=== PATIENT | male | born 1950 | race Caucasian/White ===

== ENCOUNTER 2016-11-12 13:23 | Inpatient (IN) | payer MEDICARE, BC ==
[~2016-11-12] VITALS: Ht 190.5 cm; Wt 79.8 kg
[2016-11-12 13:30] VITALS: BP 121/67
--- NOTE | 2016-11-12 13:50 | NUR ---
GPS/RN PATIENT ADMITTED ON A 5150 UNDER THE CARE OF DR EARLY AND DR ALVA. PER HOLD PATIENT HAS HISTORY OF SEVERE DEPRESSION AND PSYCHOSIS. PATIENT WAS FOUND IN CAR, HAVING URINATED ON HIMSELF AND STATED HE WAS HEARING VOICES AND BELIEVES PEOPLE ARE COMING TO KILL HIM. UPON FACE TOP FACE ASSESSMENT PATIENT IS PARANOID, DELUSIONAL AND GUARDED. ALL ADMISSION PAPERWORK SIGNED, BELONGINGS CHECKED IN, PATIENT DENIES SI/HI AT THIS TIME, SKIN ASSESSMENT DONE, PICTURE TAKEN OF SACRAL REDNESS, WOUND CONSULT TRIGGERED. AT THIS TIME PATIENT IS CALM, COOPERATIVE, IN DINING ROOM, WILL CONTINUE TO MONITOR Q 15 MIN FOR SAFETY AND BEHAVIOR.
[2016-11-12] MEDS ORDERED: MAGNESIUM HYDROXIDE 30 ML UDC PO PRN (14:00)
[2016-11-12] MEDS ORDERED: ACETAMINOPHEN 325 MG TABLET PO PRN (14:00)
[2016-11-12] MEDS ORDERED: MAG HYDROX/AL HYDROX/SIMETH 30 ML UDC PO PRN (14:00)
[2016-11-12] MEDS ORDERED: MIRT45TA PO (14:11)
[2016-11-12 16:00] VITALS: BP 102/66
[2016-11-12 19:51] VITALS: BP 110/75
[2016-11-12] MEDS ORDERED: QUETIAPINE FUMARATE 25 MG TABLET PO SCH (22:00)
[2016-11-12] MEDS: MIRTAZAPINE 15 MG TABLET PO SCH (22:05)
[2016-11-12] MEDS: TEMAZEPAM 7.5 MG CAPSULE PO PRN (22:22)
[2016-11-13 08:00] VITALS: BP 144/94
[2016-11-13 08:02] LABS: BASOPHILS % (AUTO) 0.5 % (0.0-2.0); EOSINOPHILS # (AUTO) 0.1 /CMM (0.0-0.7); EOSINOPHILS % (AUTO) 1.2 % (0.0-6.0); HEMATOCRIT 46 % (39-51); HEMOGLOBIN 15.7 g/dL (13.5-17.5); LYMPHOCYTES # (AUTO) 1.1 /CMM (0.8-4.8); LYMPHOCYTES % (AUTO) 17.1 % (20.0-44.0); MEAN CORPUSCULAR HEMOGLOBIN 31 PG (26.0-33.0); MEAN CORPUSCULAR HGB CONC 35 g/dl (31.0-36.0); MEAN CORPUSCULAR VOLUME 89 fL (80-96); MONOCYTES # (AUTO) 0.5 /CMM (0.1-1.30); MONOCYTES % (AUTO) 7.5 % (2.0-12.0); NEUTROPHILS # (AUTO) 4.8 /CMM (1.8-8.9); NEUTROPHILS % (AUTO) 73.7 % (43.0-81.0); PLATELET COUNT (AUTO) 195 /CMM (150-450); RDW COEFFICIENT OF VARIATION 13.6 (11.5-15.0); WHITE BLOOD COUNT (AUTO) 6.5 K/uL (4.3-11.0)
[2016-11-13 08:18] LABS: ALBUMIN 3.9 g/dL (3.4-5.0); BILIRUBIN,TOTAL 1.1 mg/dL (0.2-1.0); CALCIUM, SERUM 9.2 mg/dL (8.5-10.1); CREATININE 0.9 mg/dL (0.6-1.3); POTASSIUM 4.1 mmol/L (3.5-5.1); TOTAL PROTEIN, SERUM 6.7 g/dL (6.4-8.2)
--- NOTE | 2016-11-13 08:38 | NUR ---
WOUND CARE CONSULT: PT PRESENTS WITH INNER BUTTOCK REDNESS AND IRRITATION, PRESENT ON ADMISSION. PT CONTINENT AND AMBULATORY AT THIS TIME BUT REPORTS WAS INCONTINENT AT ONE POINT BEFORE ADMISSION. RECOMMENDATIONS FOR SKIN PROTECTION DISCUSSED WITH NURSING STAFF. WILL SEE PRN. CROWDER IN AGREEMENT WITH PLAN OF CARE. Addendum: 11/13/16 at 0841 by JULIA ABDALLA WNDNU Amended: Links added.
[2016-11-13] MEDS ORDERED: Z GUARD REMEDY 2 OZ OINT TP PRN (09:00)
[2016-11-13] MEDS: Z GUARD REMEDY 2 OZ OINT TP SCH (09:01)
[2016-11-13] MEDS: SERTRALINE HCL 50 MG TABLET PO SCH (09:01)
[2016-11-13] MEDS: LORAZEPAM 0.5 MG TABLET PO PRN (09:33)
--- NOTE | 2016-11-13 09:33 | NUR ---
ADMINISTERED ATIVAN 0.5 MG PO PRN FOR ANXIETY, V/S TAKE BP-144/94, P-73, CONTINUED MONITORING.
--- NOTE | 2016-11-13 12:35 | NUR ---
UR update: faxed facesheet, h&p's and med list to [facility] Abril Hurley at [phone] FAX# [phone]. AUTHORIZATION# [id number]
--- NOTE | 2016-11-13 12:36 | NUR ---
Initial discharge plan: Pt. states he lives at home [address] [facility] [address] with his but is unsure if he can return as he thinks they are being evicted. ULISES attempted to call , Racheal (same phone number) but it continued to have busy signal. ULISES will try again later. Will follow up with MD and family, and will arrange for safe and proper discharge. Addendum: 11/15/16 at 1435 by JENNY MONTGOMERY Pt. is able to return back home with his when stable. Pt. will be transferred back home with [facility] transportation.
[2016-11-13 16:00] VITALS: BP 128/94
[2016-11-13] MEDS: K PHOS NEUTRAL 250 MG TABLET PO SCH ×2 (17:58→21:45)
[2016-11-13 19:59] VITALS: BP 137/84
[2016-11-13] MEDS: MIRTAZAPINE 15 MG TABLET PO SCH (21:45)
[2016-11-13] MEDS: TEMAZEPAM 7.5 MG CAPSULE PO PRN (21:46)
[2016-11-13] MEDS ORDERED: QUETIAPINE FUMARATE 25 MG TABLET PO SCH (22:00)
[2016-11-14] MEDS: K PHOS NEUTRAL 250 MG TABLET PO SCH ×2 (04:50→12:25)
[2016-11-14 05:54] VITALS: BP 54/47
--- NOTE | 2016-11-14 06:38 | NUR ---
0520: Fallon loud noise by the staff and seen the patient laying down on the hallway and leaning on his right shoulder. Assessed the patient, patient stated that everything was spinning around, pale looking, hands cold to touch. V/S BP=62/41, p=65, r=18 t=97.8 02 sat=95%, blood ognik=884. Patient denies c/o pain, extremities able to move freely without c/o pain and discomfort. With the assistance of 4 nurses. Assisted the patient to stand up. Offered fluid but patient passed out. 0530: Called rapid response right away. B/P=54/27 P=60 R=20 o2 sat=95%. Assisted the patient to bed and placed in to trendelenburg position. 0532: ICU nurse Elvie aleman to assessed the patient. Patient B/P 103/69 p=56 R=20 T=97.8. O2 sat=91%. Patient stated that his ok now. He feels a lot better. O2 @ 2lpm administered via nasal cannula. 0535: Notified Dr. Mcgill and obtained an order of CT scan on the right side of the head noted and carried out . 0540: V/S FH=386/76 P=59 R=20 T=97.8 o2 sat=98%. Will continue to monitor [id number] for safety. 0638: Patient awake, alert and oriented x 2-3, no sob, no acute distress, breathing even and unlabored, denies pain and discomfort, patient stated that his ok, will continue to monitor [id number] for safety Addendum: 11/14/16 at 0704 by ALINE FRIEND II, RN ADDENDUM: NOTIFIED ERON AND DR. EARLY (PSYCHIATRIST)
[2016-11-14 07:37] LABS: PHOSPHORUS 5.8 mg/dL (2.5-4.9); POTASSIUM 3.7 mmol/L (3.5-5.1)
--- NOTE | 2016-11-14 07:40 | NUR ---
received pt. alert and oriented.stable.vs stable.no complaints.has sitter at this time.
[2016-11-14 08:00] VITALS: BP 146/98
[2016-11-14] MEDS: SERTRALINE HCL 50 MG TABLET PO SCH (09:04)
--- NOTE | 2016-11-14 10:00 | NUR ---
endorsed to himanshu rose.am meds given.bp at this time 133/83,h.rate 83.
--- NOTE | 2016-11-14 10:50 | NUR ---
UR update: ULISES faxed updated clinicals and med list to [facility] T at [phone] FAX# [phone]. AUTHORIZATION# [id number]
[2016-11-14] MEDS: Z GUARD REMEDY 2 OZ OINT TP SCH (12:25)
[2016-11-14 16:00] VITALS: BP 122/96
--- NOTE | 2016-11-14 16:19 | NUR ---
GPS/RN ORTHOSTATIC BP DONE ORDERED. PRN. RESULTS ARE FOLLOWS: BP 148/87, HR- 73 SITTING- 145/84, HR- 78, STANDING- 118/72 HR 82, MASTER CONTROL ENGINEER JUAN NOTIFIED. Addendum: 11/14/16 at 1856 by FRANK ZELAYA RN GPS/RN EDUCATED PATIENT ON THE NEED TO SIT AND DANGLE FEET IN A SITTING POSITION FOR 5 MIN BEFORE ATTEMPTING TO AMBULATE, VERBALIZED UNDERSTANDING.
[2016-11-14 20:00] VITALS: BP_SYST 125; BP_SYST 138; BP_SYST 144; BP_DIAS 81; BP_DIAS 88; BP_DIAS 93
--- NOTE | 2016-11-14 20:00 | NUR ---
RN NOTES: PATIENT IN THE PATIO,AMBULATORY, STEADY GAIT, ON 1:1 SITTER, INSTRUCTED PT TO GO BACK TO BED, DIRECTIONAL, PT A/O X2, COOPERATIVE, RESTLESS AND WITHDRAWN, DENIES OF HURTING HIMSELF, DENIES ANY CHEST PAIN OR DISCOMFORT, PT S/P FALL THIS MORNING CT NEGATIVE, ORTHOSTATIC BP TAKEN Q SHIFT, INSTRUCTED PT TO AVOID SUDDEN MOVEMENTS ESPECIALLY WHEN GETTING UP IN BED, SAFETY PRECAUTIONS FOR FALL INITIATED, WILL MONITOR [id number] FOR SAFETY AND BEHAVIOR
[2016-11-14 20:21] VITALS: BP 138/81
--- NOTE | 2016-11-14 20:30 | NUR ---
RN NOTES: ORTHOSTATIC BP TAKEN FOLLOWS: LYIN/88 HR 76 RR 20 SPO2 98% ON ROOM AIR TEMP 98.6 SITTIN/81 HR 82 RR 20 SPO2 98% ON ROOM AIR STANDIN/93 HR 98 RR 19 SPO2 100% ON ROOM AIR PT DENIES ANY HEAD ACHE DIZZINESS OR LIGHT HEADEDNESS, WILL CONTINUE TO MONITOR
[2016-11-14] MEDS ORDERED: QUETIAPINE FUMARATE 25 MG TABLET PO SCH (22:00)
[2016-11-14] MEDS: MIRTAZAPINE 15 MG TABLET PO SCH (22:16)
--- NOTE | 2016-11-14 23:00 | NUR ---
RN NOTES: OFFERED SLEEPING PILL, BUT PT REFUSED
[2016-11-15] MEDS: TEMAZEPAM 7.5 MG CAPSULE PO PRN (02:03)
--- NOTE | 2016-11-15 02:03 | NUR ---
rn notes: pt requested to take her sleeping pill, prn restoril 7.5 mg tab p administered to rthe pt, instructed pt to go back to bed and not ambulate around the hallway since he took the sleeping pill. pt agree. assisted back in bed.
[2016-11-15 07:41] LABS: CALCIUM, SERUM 9.1 mg/dL (8.5-10.1); CREATININE 0.9 mg/dL (0.6-1.3); POTASSIUM 4.1 mmol/L (3.5-5.1)
[2016-11-15 08:00] VITALS: BP 145/93
[2016-11-15] MEDS: Z GUARD REMEDY 2 OZ OINT TP SCH (08:23)
[2016-11-15] MEDS ORDERED: SERTRALINE HCL 50 MG TABLET PO SCH (09:00)
--- NOTE | 2016-11-15 11:36 | NUR ---
ORTHOSTATIC BP: STANDING: BP 129/89, DE 85 SITTIN/89, DE 74 LYIN/99, PT 69
--- NOTE | 2016-11-15 14:40 | NUR ---
UR update: ULISES faxed updated clinicals and med list to [facility] T at [phone] FAX# [phone]. AUTHORIZATION# [id number]
[2016-11-15 16:00] VITALS: BP 148/89
[2016-11-15 20:00] VITALS: BP_SYST 116; BP_SYST 166; BP_DIAS 70
[2016-11-15] MEDS: MIRTAZAPINE 15 MG TABLET PO SCH (21:05)
[2016-11-15] MEDS ORDERED: QUETIAPINE FUMARATE 25 MG TABLET PO SCH (22:00)
[2016-11-16 07:28] LABS: CALCIUM, SERUM 9.1 mg/dL (8.5-10.1); CREATININE 0.9 mg/dL (0.6-1.3); POTASSIUM 3.8 mmol/L (3.5-5.1)
[2016-11-16 08:00] VITALS: BP 157/82
[2016-11-16] MEDS: Z GUARD REMEDY 2 OZ OINT TP SCH (08:22)
[2016-11-16] MEDS ORDERED: SERTRALINE HCL 50 MG TABLET PO SCH (09:00)
--- NOTE | 2016-11-16 11:09 | NUR ---
ORTHOSTATIC BP: LYIN/97, MS 75 SITTIN/92, MS 74 STANDIN/95, MS 88 KANDY MARTINEZ MADE AWARE.
[2016-11-16 16:00] VITALS: BP 153/94
--- NOTE | 2016-11-16 16:08 | NUR ---
UR update: ULISES received a voicemail from kris Hurley at [phone] FAX# [phone]. authorizing the patient through the weekend with a review due on Saturday if pt. does not discharge. AUTHORIZATION# [id number]
--- NOTE | 2016-11-16 19:13 | NUR ---
GPS RN NOTE, RECEIVED PATIENT AWAKE AND IN BED, NO S/S OR COMPLAINTS OF PAIN AT THIS TIME. PATIENT IS DISPLAYING NO S/S OF APPARENT DISTRESS AT THIS TIME. PATIENT HAS A ONE TO ONE SITTER FOR BEING AGGRESSIVE WITH STAFF. PATIENT HAS ON 1 TO 1 SITTER FOR FALL RISK. PATIENT BREATHING IS UNLABORED WITH EQUAL RISE AND FALL OF THE CHEST. PATIENT IS ALERT AND ORIENTED X 2 ON ROOM AIR WITH A SPO2 96%. PATIENT COMPLIANT WITH MEDICATIONS, DEPRESSED, GUARDED, COOPERATIVE, CONFUSED AT TIMES, AND NEEDS REORIENTATION. PATIENT DENIES SUICIDE AND HOMICIDAL IDEATIONS AT THIS TIME. PATIENT ASSISTED WITH TURNING AND REPOSITIONING Q2HR AND PRN FOR COMFORT AND CIRCULATION. PATIENT HAS NO NEEDS AT THIS TIME. PATIENT EDUCATED ON THE USE OF THE CALL ALLISON. PATIENT BED SIDE RAILS UP X2 FOR SAFETY, BED IS LOCKED AND LOW WILL CONTINUE TO MONITOR AND MAINTAIN SAFETY.
[2016-11-16 20:00] VITALS: BP 153/99
[2016-11-16] MEDS: MIRTAZAPINE 15 MG TABLET PO SCH (21:00)
[2016-11-16] MEDS ORDERED: QUETIAPINE FUMARATE 25 MG TABLET PO SCH (22:00)
[2016-11-17 07:00] LABS: CALCIUM, SERUM 9.3 mg/dL (8.5-10.1); POTASSIUM 3.9 mmol/L (3.5-5.1)
[2016-11-17 08:00] VITALS: BP 148/88
[2016-11-17] MEDS: SERTRALINE HCL 50 MG TABLET PO SCH (08:49)
[2016-11-17] MEDS: Z GUARD REMEDY 2 OZ OINT TP SCH (08:49)
--- NOTE | 2016-11-17 10:33 | NUR ---
DR. EARLY ORDERED TO D/C 1:1.
[2016-11-17 16:00] VITALS: BP 146/98
[2016-11-17 20:00] VITALS: BP 119/55
[2016-11-17] MEDS: MIRTAZAPINE 15 MG TABLET PO SCH (21:23)
[2016-11-17] MEDS ORDERED: QUETIAPINE FUMARATE 25 MG TABLET PO SCH (22:00)
[2016-11-17] MEDS: TEMAZEPAM 7.5 MG CAPSULE PO PRN (23:38)
[2016-11-18 08:00] VITALS: BP 106/72
[2016-11-18] MEDS: SERTRALINE HCL 50 MG TABLET PO SCH (08:26)
[2016-11-18] MEDS: Z GUARD REMEDY 2 OZ OINT TP SCH (08:27)
[2016-11-18 08:32] LABS: CALCIUM, SERUM 8.5 mg/dL (8.5-10.1); CREATININE 0.9 mg/dL (0.6-1.3); POTASSIUM 3.9 mmol/L (3.5-5.1)
[2016-11-18] MEDS: LORAZEPAM 0.5 MG TABLET PO PRN (08:41)
--- NOTE | 2016-11-18 08:41 | NUR ---
[id number] ativan 0.5 mg po prn for anxiety, v/s taken bp- 110/72, p-74, continued monitoring.
[2016-11-18 15:46] VITALS: BP 129/88
[2016-11-18 19:53] VITALS: BP 140/95
[2016-11-18] MEDS: QUETIAPINE FUMARATE 100 MG TABLET PO SCH (21:00)
[2016-11-18] MEDS: MIRTAZAPINE 15 MG TABLET PO SCH (21:00)
[2016-11-18] MEDS: TEMAZEPAM 7.5 MG CAPSULE PO PRN (23:47)
[2016-11-19 07:04] LABS: CALCIUM, SERUM 8.5 mg/dL (8.5-10.1); CREATININE 0.9 mg/dL (0.6-1.3); POTASSIUM 3.7 mmol/L (3.5-5.1)
[2016-11-19 08:00] VITALS: BP 139/91
[2016-11-19] MEDS: Z GUARD REMEDY 2 OZ OINT TP SCH (08:00)
[2016-11-19] MEDS: SERTRALINE HCL 50 MG TABLET PO SCH (08:01)
--- NOTE | 2016-11-19 11:37 | NUR ---
Pt. was referred and per CJ not accepted to [address] [address] due to not having skilled needs.
--- NOTE | 2016-11-19 11:40 | NUR ---
Pt. was [facility] [address] [place] [address] . will follow up
--- NOTE | 2016-11-19 12:07 | NUR ---
UR update: ULISES faxed updated clinicals and med list [facility] T at [phone] FAX# [phone]. AUTHORIZATION# [id number]
[2016-11-19 16:00] VITALS: BP 134/79
[2016-11-19 19:38] VITALS: BP 139/83
[2016-11-19] MEDS: MIRTAZAPINE 15 MG TABLET PO SCH (20:25)
[2016-11-19] MEDS: QUETIAPINE FUMARATE 100 MG TABLET PO SCH (20:26)
[2016-11-19] MEDS: TEMAZEPAM 7.5 MG CAPSULE PO PRN (20:28)
[2016-11-20 08:00] VITALS: BP 133/83
[2016-11-20] MEDS: SERTRALINE HCL 50 MG TABLET PO SCH (08:22)
[2016-11-20] MEDS: Z GUARD REMEDY 2 OZ OINT TP SCH (09:00)
[2016-11-20] MEDS: QUETIAPINE FUMARATE 25 MG TABLET PO SCH ×3 (10:30→17:09)
--- NOTE | 2016-11-20 10:57 | NUR ---
UR update: ULISES faxed updated clinicals and med list [facility] T at [phone] FAX# [phone]. ULISES updated Abril with information that pt's discharge was cancelled as pt is experiencing more delusions today and needs to have medications management. AUTHORIZATION# [id number]
[2016-11-20 15:16] VITALS: BP 128/76
[2016-11-20 20:06] VITALS: BP 136/78
[2016-11-20] MEDS: TEMAZEPAM 7.5 MG CAPSULE PO PRN (21:22)
[2016-11-20] MEDS: MIRTAZAPINE 15 MG TABLET PO SCH (21:23)
[2016-11-20] MEDS ORDERED: QUETIAPINE FUMARATE 100 MG TABLET PO SCH (22:00)
[2016-11-21 08:00] VITALS: BP 126/78
[2016-11-21] MEDS: QUETIAPINE FUMARATE 25 MG TABLET PO SCH ×2 (08:07→16:17)
[2016-11-21] MEDS: SERTRALINE HCL 50 MG TABLET PO SCH (08:07)
[2016-11-21] MEDS: Z GUARD REMEDY 2 OZ OINT TP SCH (11:01)
--- NOTE | 2016-11-21 12:46 | NUR ---
UR update: ULISES faxed updated clinicals and med list [facility] T at [phone] FAX# [phone]. AUTHORIZATION# [id number]
[2016-11-21 16:00] VITALS: BP 118/79
[2016-11-21 20:46] VITALS: BP 127/75
[2016-11-21] MEDS: MIRTAZAPINE 15 MG TABLET PO SCH (21:13)
[2016-11-21] MEDS ORDERED: QUETIAPINE FUMARATE 100 MG TABLET PO SCH (22:00)
[2016-11-22 08:15] VITALS: BP 138/89
[2016-11-22] MEDS: SERTRALINE HCL 50 MG TABLET PO SCH (08:24)
[2016-11-22] MEDS: QUETIAPINE FUMARATE 25 MG TABLET PO SCH (08:24)
[2016-11-22] MEDS: Z GUARD REMEDY 2 OZ OINT TP SCH (08:25)
--- NOTE | 2016-11-22 14:24 | NUR ---
GPS/RN PATIENT CLEARED FOR DISCHARGE BY DR EARLY AND ADDI FLEET ADMINISTRATIVE ASSISTANT TO [facility]. ALL D/C PAPERWORK SIGNED, BELONGINGS RETURNED, MEDICATIONS EXPLAINED TO PATIENT, VERBALIZED UNDERSTANDING, REFUSED D/C PHOTOS, PATIENT DENIES SI/HI/AVH AT TIME OF DISCHARGE. REPORT CALLED TO FACILITY, LEFT UNIT CALM, COOPERATIVE, EMT AT SIDE.
--- NOTE | 2016-11-22 15:27 | NUR ---
Discharge note: Pt. was discharged to [facility] [address] [place] [address] via [facility]. Pt. was cooperative, a little anxious about the transition, but he agreeable with the plan. Pt. denied having suicidal thoughts as well as homicidal thoughts. Pt's , Racheal [phone] has been notified and agreed with the discharge plan. RN gave report to the accepting facility and discharge instructions, discharge paperwork has been signed.
== END 2016-11-22 14:25 | DRG 885 ==
LOC: GPS 13:23
PROVIDERS: ADMIT Psychiatry & Neurology Psychosomatic Medicine; ATTEND Internal Medicine
DX: F32.3 Major depressive disorder, single episode, severe with psychotic features (principal); E44.1 Mild protein-calorie malnutrition; F29 Unspecified psychosis not due to a substance or known physiological condition; Z68.22 Body mass index [BMI] 22.0-22.9, adult
CPT/HCPCS: 36415; 70450-TC; 80048-TC; 80053-TC; 80061-TC; 82962-TC; 83735-TC; 84100-TC; 85025-TC; 87081-TC